=== PATIENT | male | born 1950 | race Caucasian/White ===

== ENCOUNTER 2016-09-09 00:13 | Inpatient (IN) | payer OTHER ==
[2016-09-09] VITALS (10 sets, daily range): BP systolic 129–166; BP diastolic 80–96
[~2016-09-09] VITALS: Ht 180.3 cm; Wt 111.1 kg
--- NOTE | ~2016-09-09 | DS ---
[place], [place] DISCHARGE SUMMARY NAME: ROHAN CHANDRA [facility] #: [id number] UNIT #: [id number] [facility] DOCTOR: JUAN A GREER MD BIRTHDATE: [birth year] DOS: 09/17/2016 ADMISSION DIAGNOSES: 1. Nmirf-yq-jiu rectal adenocarcinoma. No lymph gland involvement. 2. Bowel obstruction. 3. Leakage of the colorectal anastomosis. 4. Atrial fibrillation, treated with heparin and IV Lopressor. 5. Recurrent bowel obstruction and most probably dehiscence of the rectal stump with impending dehiscence of abdominal wall and fascia. PROCEDURE IN HOSPITAL: First operation was low anterior resection with intraoperative colonoscopy followed by second operation on 09/14/2016 with exploration, decompression of the small bowel and disc conduction of the colorectal anastomosis. BRIEF SUMMARY: I did colonoscopy on him and he was found to have upper rectal, cauliflower rectal lesion which turned out to be adenocarcinoma. I had discussed the need for surgical intervention and presented to the low anterior resection with possible postop radiation therapy. He underwent the low anterior resection with EEA and intraoperative colonoscopy and air leak test which was okay. Postop he did develop kidney function problem and maybe from Toradol but I am not sure and Nephrology consult was obtained, that actually was taken care of how he developed abdominal distention and on day of surgery he developed tachycardia and he also developed fever and did a CAT scan which showed possible leak at the colorectal anastomosis and based on the fact that he has looked like bowel obstruction and that leak we went in, we decompressed his bowel and disconnected the colorectal anastomosis. Again, postop he did okay but he developed atrial fibrillation, heparin was started, but now again he is doing the same thing, and the belly is distended. He had lot of oral intake almost 2200 mL. But, the main problem is that since last night he has developed his anal leak. It is a clear bloody fluid and he had done it more than 4-5 times now since last night. The other issue is that he is having lot of serosanguineous drainage from incision and abdominal x-rays again show possible bowel obstruction. So, main problem is that these two recurrent problems and rectal stump dehiscence and I have discussed with the family in my opinion, he should be transferred to a tertiary facility. Patient may need removal of the anal stump, so we would close of the anal area and colostomy will become permanent. He may need exploration again to take the dehiscence and decompression again and whatever is thought better worthy of. He is overall very stable actually and he has no tachycardia, no tachypnea. His heart rate is controlled. His blood pressure is normal. Good oxygenation. His today's lab workup showed WBC count 19.4 and his sodium is 147 and chloride 115 which is better than yesterday and also his BUN and creatinine is coming down almost within normal range. Because of these multiple issues and in my opinion the best thing for him would be to taken care at a tertiary facility, especially by a colorectal surgeon and whatever decision made would be nice. Family understand and they will agree for me to transfer him. [place], [place] DISCHARGE SUMMARY [id number] UNIT #: [id number] [facility]OM: [facility] DOCTOR: JUAN A GREER MD BIRTHDATE: [birth year] Juan A Greer MD CM:NICOLÁS [id number] JUAN A GREER MD 10/24/16 0855 interface
--- NOTE | ~2016-09-09 | PR ---
[place], [place] PROGRESS NOTE NAME: ROHAN CHANDRA [facility] #: [id number] UNIT #: [id number] ROOM: [facility] DOCTOR: JIGNA SCOTT,MO Kenney BIRTHDATE: [birth year] DOS: 09/16/2016 NEPHROLOGY FOLLOWUP NOTE SUBJECTIVE: The patient was seen and examined. He is awake and alert. He looks and feels much better. He does feel very thirsty. Denies any shortness of breath. PHYSICAL EXAMINATION: VITAL SIGNS: Temperature 98.3, pulse 98 , respiratory rate 20, blood pressure 150/82. HEENT: Shows no JVD. Mucous membranes were dry. LUNGS: Diminished breath sounds. No wheeze. HEART: Normal S1, S2. No rub, thrill, or gallop. ABDOMEN: Distended, nontender to mild palpation. EXTREMITIES: Showed trace edema. LABORATORY DATA: Sodium 150, potassium 3.7, BUN 30, creatinine 1.57, glucose 130, calcium 8.2, phosphorus 2.0, magnesium 2.7. IMPRESSION AND PLAN: 1. Acute kidney injury, which appears consistent with a prerenal/acute tubular necrosis-like picture. The patient's baseline creatinine seems to be in the range of 1.2-1.3. Renal function is improving. Electrolytes are acceptable. Replace as needed. 2. Hypernatremia. The patient is on IV fluids. They have been changed to hypotonic solution in view of his hypernatremia. He is now cleared for oral intake. We will increase oral fluids as tolerated. 3. Rectal cancer with anastomotic leak. Continue supportive care. 4. Anemia. Transfuse as needed. 5. Hypertension. Continue meds. Add oral meds when indicated. MO BENITO MD CM:PNTRANS [id number] MO BENITO MD 10/24/16 0857 interface
--- NOTE | ~2016-09-09 | O ---
[place], [place] OPERATIVE NOTE [id number] UN[facility] #: [id number] [facility] DOCTOR: JUAN A GREER MD BIRTHDATE: [birth year] DOS: 09/13/2016 PREOPERATIVE DIAGNOSES: 1. Status post low anterior resection of rectal carcinoma. 2. Possible bowel obstruction. 3. Possible anastomotic leak. POSTOPERATIVE DIAGNOSES: Massive dilatation of the small bowel with ileus, functional obstruction and anastomotic leak on left side of the anastomosis. PROCEDURE: Exploratory laparotomy, decompression of the small bowel, and we got almost 3300 mL of enteric fluid out after enterotomy and closure of enterotomy. Intraoperative colonoscopy and disconnecting the anastomosis using Ethicon contour stapler and a colostomy. SURGEON: Dr. Greer. DESCRIPTION OF PROCEDURE: Under general anesthesia, the patient prepped and draped in normal sterile fashion. The patient had a low anterior resection for perirectal carcinoma. Postop, he developed ileus and had been doing okay, but from last time he developed tachycardia and starting having fever and the abdomen became very, very distended and I thought maybe he has free air, but CT scan did not show that; however, he definitely had a fluid collection around the anastomosis with free air around it. Because of the deterioration in the patient's condition, I discussed with the family and the patient that we would need to go in and decompress the bowel and possible colostomy. With this background, he was brought in. Under general anesthesia, the patient prepped and draped. Previous incision's staple removed and peritoneum entered. Bookwalter retractor applied and the abdominal wall was retracted hyperextending the incision superior toward the epigastrium. When we entered, there was no sign of any enteric fluid coming out; however, small bowel is massively dilated. It was taken out of the abdominal cavity and then enterotomy made in mid ileum and decompression and backward and forward and almost 3300 mL of enteric fluid was obtained with complete decompression. Enterotomy site was closed with TA60 and reinforced with suture. At this time, the patient placed in deep Trendelenburg position. Again, in the pelvic cavity, I do not see any obvious fecal contamination; however, in the presacral space there is a lot of fluid. At this time, I went down and did a gentle colonoscopy and when we injected air, there was some bubbles coming from the abdominal peritoneal cavity. It looks like it is coming in the left side or posterior side of the anastomosis. Because this was a low anastomosis, I tried to suture it, but tissues are filmsy and I was unable, hence I decided to disconnect the anastomosis, which I did with Ethicon contour stapler and the rest of the sigmoid colon was brought up. This is very redundant sigmoid colon, so using the LigaSure, the clamping ligation of the mesosigmoid colon is done and excess colon is resected by a sliding another firing of Ethicon contour cutter. At this time, I pulled the rectus sheath to the midline and made a small incision above the belly button and an opening made and through that end of sigmoid colon is brought up. Thorough irrigation of the pelvic area was done. There is no oozing or bleeding anywhere at this time that I could see. Fascia is closed with 1 PDS continuous [place], [place] OPERATIVE NOTE NAME: ROHAN CHANDRA UNIT #: [id number] ROOM: [facility] DOCTOR: JUAN A GREER MD BIRTHDATE: [birth year] suture, however, we put 2 Interceed underneath. Subcutaneous tissue with 3-0 PDS. Skin is closed with clips. Primary maturation of the colostomy done using 3-0 PDS interrupted sutures. Dressing and colostomy applied. The patient tolerated the procedure well and was sent to room. Family was appraised of all the finding of this. Juan A Greer MD CM:OPRECORD:OPERATIVE NOTE [phone] JUAN A GREER MD 09/13/162140 interface
--- NOTE | ~2016-09-09 | PR ---
[place], [place] PROGRESS NOTE NAME: ROHAN CHANDRA [facility] #: [id number] UNIT #: [id number] ROOM: [facility] DOCTOR: MANDA JACOBSON MD BIRTHDATE: [birth year] DOS: 09/17/2016 CARDIOLOGY PROGRESS NOTE SUBJECTIVE: The patient was seen at his bedside in the intensive care unit today 09/17/2016 for followup of perioperative atrial fibrillation. We had kept him on a heparin infusion since surgery for stroke prophylaxis. Overnight, his abdomen has gotten more swollen and he has had some vaibhav bloody seepage from his wound. He has also had some rectal bleeding. We have therefore stopped his heparin. He tells me that he feels more poorly today. He was only able to drink a half a cup of tea and has not eaten anything else. He still is breathing alright and does not have any chest pain or palpitations. He remains in sinus rhythm, but his abdomen is swollen and tender. PHYSICAL EXAMINATION: VITAL SIGNS: Today, his pulse is 90-100 and regular, blood pressure is 142/87. He is afebrile. Oxygenation is 99% by pulse oximetry. NECK: Supple. He has no jugular distention. Carotids are full and I heard no bruits. He had no neck or supraclavicular masses. LUNGS: Respirations are unlabored. His chest is clear to auscultation and percussion. He has no presacral edema or chest wall tenderness. HEART: Has a regular rhythm with an S4 gallop, but no S3. ABDOMEN: Distended and is very hypoactive. EXTREMITIES: Showed no edema. LABORATORY DATA: Hemoglobin is 9.3, hematocrit 29.1, white count is 19,100. Sodium is 147, potassium 3.6, BUN is 29, creatinine of 1.33. An echocardiogram was done yesterday and showed moderate concentric left ventricular hypertrophy with normal left ventricular systolic function and grade 1 diastolic relaxation abnormality. The left atrium was mildly enlarged, no significant valvular disease was seen. IMPRESSIONS: 1. New-onset atrial fibrillation in the perioperative period. The patient has been in sinus rhythm for the last 2 days. 2. History of hypertension. 3. History of hyperlipidemia. 4. No previous history of heart disease prior to the current events. 5. Status post low anterior resection of a colon cancer with subsequent anastomotic leak requiring creation of an ostomy. His abdomen is now more distended and he is bleeding. PLAN: We will withhold anticoagulants for now. We will continue intravenous metoprolol for rate control and follow him with his other physicians. I thank Dr. Greer and the hospitalist doctors for asking our advice regarding his care. [place], [place] PROGRESS NOTE NAME: ROHAN CHANDRA UNIT #: [id number] ROOM: [facility] DOCTOR: MANDA JACOBSON MD BIRTHDATE: [birth year] MANDA JACOBSON MD CM:PNTRANS [phone] MANDA JACOBSON MD 09/17/161933 interface
--- NOTE | ~2016-09-09 | PR ---
[place], [place] PROGRESS NOTE NAME: ROHAN CHANDRA [facility] #: [id number] UNIT #: [id number] [facility] DOCTOR: ITZ DUEÑAS MD BIRTHDATE: [birth year] DOS: 09/15/2016 This is postop day 2 on the patient who renally had a very low anterior resection for rectal carcinoma. Two days ago, he become tachycardic and had high fever, and we went in. He had almost like bowel obstruction and decompression was done, and also we had to disconnect the low anastomosis because there was leakage on intraoperative colonoscopy. He is doing overall okay, but this morning, he started having what looks like atrial fibrillation and Dr. Castro has seen the patient, and he has been started on Cardizem, and we will get a cardiology consult. Overall, otherwise he is okay. He is very alert, oriented. He says his pain is less. His NG drainage now is not much coming out and his urine is also good output. Clinically, it looks like he may be jaundiced actually. His abdomen is protuberant but before incision looking good. Colostomy has liquid drainage and looks like it may be maroon colored or dark coffee ground. His legs are nontender. There is no positive squeeze test. LABORATORY DATA: His hemoglobin 9 and hematocrit 20.8. The BUN and creatinine are stable in the ratio of almost 20 to 1. There is no bilirubin today, but I think yesterday was 1.7. IMPRESSION: Overall, he is stable. New onset of what looks like atrial fibrillation and it could be because of the fact that although he is getting medication for the NG tube, but maybe not getting reabsorbed and maybe rebound phenomena. However, we will see what Dr. Daley, the combatant diver qualified on-call, say about it. From my stand point, I am going to continue IV fluid and I did add erythromycin IV to maybe stimulate the gut and start moving. We will continue IV antibiotics and I will get a lipase level just to be sure there is no pancreatitis going on. As far as his bilirubin up, it could be post-anesthesia affect in the liver or partly could be abscess as an element of sepsis. We will keep an eye on that, and he may be able to get some ice chips, sips of water or some gum or popsicle if he wants to. Also, we will start clamping and unclamping the NG tube and see if we can take the tube out. Also today, his Phipps catheter will come out. Overall, I think I explained these facts to the patient's family who was sitting in the room. So far, I think he is stable and hopefully his heart rate will come down after they put him on Cardizem drip or whatever has to be done and also it will be okay from my standpoint to start him on heparin drip. [place], [place] PROGRESS NOTE NAME: ROHAN CHANDRA [place] UNIT #: [id number] ROOM: [facility] DOCTOR: ITZ DUEÑAS MD BIRTHDATE: [birth year] Itz Dueñas MD CM:KIZZY [id number] ITZ DUEÑAS MD 09/15/16 2336 interface
--- NOTE | ~2016-09-09 | CON ---
[place], [place] REPORT OF CONSULTATION [id number] UN[facility] #: [id number] ROOM: [facility] DOCTOR: MO BENITO MD BIRTHDATE: [birth year] DOS: 09/14/2016 NEPHROLOGY CONSULTATION REASON FOR CONSULTATION: Acute kidney injury. HISTORY OF PRESENT ILLNESS: The patient is a 66-year-old male with past medical history of hypertension, rectal cancer and osteoarthritis. The patient apparently had a bowel resection surgery and developed anastomotic leak and he went back to surgery for a second-look exploratory laparotomy. I do not know the details. The patient was on the vent and actually when I went to see him, he just was extubated. Apparently during the OR, massive dilation of small bowel with ileus with the function obstruction was noted as well as an anastomotic leak. The patient did have decompression surgery and colostomy. Again, when I seen him, he was awake and his family was at bedside. Following all these events, he developed acute kidney injury. He denied having any chronic kidney disease or any renal issues in the past. Recent CT scan did not reveal any obstructive process. His creatinine from a few days ago was actually higher than where it was now. Today's creatinine was 2.1. His baseline creatinine seems to be in the range of 1.2-1.3 dating back a few years. In fact, he had a creatinine of 1.2 on 08/28/2016. His creatinine was as high as 3.1 few days ago and it did improve to his baseline basically yesterday, but did jump back up today at 2.1. He was not on any at the present time. Again, he was awake and alert. Denies shortness of breath. He has been receiving IV fluids. He also is on antibiotics. HOME MEDICATIONS: Include metoprolol, Protonix, Reglan, subcutaneous heparin, meropenem, fluconazole, Zosyn. ALLERGIES: LISTED CIPRO, LEVOFLOXACIN, MOXIFLOXACIN. PAST MEDICAL HISTORY: 1. Hypertension. 2. Hyperlipidemia. 3. Rectal cancer. 4. Seasonal allergies. 5. Osteoarthritis. 6. Status post bilateral knee replacement. 7. Lower anterior resection of the rectum. 8. Wrist fracture surgery. FAMILY HISTORY: Negative for chronic kidney disease, otherwise, noncontributory. SOCIAL HISTORY: Previous history of tobacco abuse. No history of alcohol. REVIEW OF SYSTEMS: As per HPI, otherwise a 10-point review of systems was reviewed and was negative. PHYSICAL EXAMINATION: [place], [place] REPORT OF CONSULTATION NAME: ROHAN CHANDRA UNIT #: [id number] ROOM: [facility] DOCTOR: MO BENITO MD BIRTHDATE: [birth year] VITAL SIGNS: Temperature 99.7, pulse 109, respiratory rate 17, blood pressure 140/70. GENERAL: He is critically ill, awake, alert, no apparent distress. HEENT: Shows no JVD. Sclerae are anicteric. Mucous membranes appear dry. Pharynx is clear. NECK: Supple. Trachea was midline. There is no neck lymphadenopathy. There is no thyromegaly. LUNGS: Diminished breath sounds. No appreciable wheeze. He is not using accessory muscles of respiration. HEART: Normal S1, S2. No rub, thrill or gallop. ABDOMEN: Soft and nontender. There is no organomegaly or rigidity. There is no rebound or guarding. There is no CVA tenderness. EXTREMITIES: Had trace edema. There is no lower extremity lymphadenopathy. Distal pulses are 2+. SKIN: Showed no rashes, no petechiae or purpura. Skin temperature was warm. NEUROLOGIC: He is awake, alert. He is following commands. His cranial nerves were intact. LABORATORY DATA: Hemoglobin 9.5, white count of 9.2, platelets of 345,000. Sodium 143, potassium 3.9, BUN 39, creatinine 2.1, carbon dioxide 22, albumin of 2.2, calcium 7.3. IMPRESSION: 1. Acute kidney injury with a baseline creatinine seems to be in the range of 1.2-1.3. The etiology seems most consistent with a prerenal/ATN like picture, likely related to transient ischemia. 2. Rectal cancer. 3. Anastomotic leak. 4. Anemia. 5. History of hypertension. 6. Hyperlipidemia. 7. Osteoarthritis. PLAN: 1. Continue ongoing hemodynamic support. 2. IV fluids as tolerated. 3. Dose medications for current creatinine clearance. 4. Replace electrolytes as needed. 5. Follow strict I's and O's. 6. Antibiotics as per the Primary Service. 7. No need for renal replacement therapy. Continue to follow labs daily. Thank you for this consultation. We will follow with you. [place], [place] REPORT OF CONSULTATION NAME: ROHAN CHANDRA UNIT #: [id number] ROOM: [facility] DOCTOR: JIGNA SCOTT,MO Kenney BIRTHDATE: [birth year] MO BENITO MD CM:CONSTR:REPORT OF CONSULTATION 1543 09/15/16 1244 interface
--- NOTE | ~2016-09-09 | PR ---
[place], [place] PROGRESS NOTE [id number] #: [id number] [facility] DOCTOR: JUAN A GREER MD BIRTHDATE: [birth year] DOS: 09/11/2016 This is a followup postop note. The patient had a low anterior resection for rectal carcinoma. Postop, his creatinine went up yesterday and he got changed to normal saline bolus fluid and albumin and Nephrology consult was taken. He had good urine output the whole night and he did have lot of oral intake. He has been complaining about indigestion and he is trying to pass gas but unable to do it. On examination, he had no tachypnea or tachycardia. His lungs were clear. Abdomen was distended, tympanitic. Low bowel sounds. No oozing or bleeding from the rectum. Legs are nontender. Lab workup shows WBC came down to 16,000 and his creatinine is less but BUN is more today. Based on this, I did an abdominal film on him and looks like he has dilated loops of bowel and what looked like to me gastric dilatation on x-rays and not much free air on these films. He got 2 doses of Toradol postop, so I am not sure that triggered it or not, but overall creatinine getting better, but BUN went up. Looks like he has postop ileus. We will continue with management as is at present. NG tube was inserted and lot of fluid came out. He vomited actually and then 125 mL came in the bottle and 250 more. IMPRESSION AND PLAN: Status post resection, most probably ileus and kidney problem, whether due to the hypotension, which I do not know when or Toradol. We will continue as present and keep an eye on this patient for any sign of dehiscence or anything. I had discussed the findings with the patient's and we will see that this NG tube hopefully can take away some of the postop ileus issues. Juan A Greer MD CM:PNTRANS [phone] JUAN A GREER MD 10/24/16 0906 interface
--- NOTE | ~2016-09-09 | PR ---
[place], [place] PROGRESS NOTE [id number] UNIT #: [id number] [facility]: [facility] DOCTOR: JUAN A GREER MD BIRTHDATE: [birth year] DOS: This is a followup note on him. The patient overall I think doing okay. His pulse rate is still in above 100. He has no shortness of breath that I could see. He is coughing up some sputum could be white. His lungs are at least sounds clear, but at bases maybe low sounds. Abdomen is softly distended. Colostomy is working. The incision is doing okay. He is having adequate urine output. LABORATORY DATA: Shows a WBC count to 21,000. His BUN and creatinine actually slowly coming down and his bilirubin 2 today. His lipase was normal. IMPRESSION: Status post ileostomy. His count went up to 21,000 and bilirubin 2, so I have to worry about gallbladder problem and ultrasound was done, it shows sludge, but I am worried that there may be some question of cholecystitis because I do see some sign of a little bit pericholecystic fluid there. His chest x-ray did show some bilateral atelectasis. Also, his sodium is very high 150 and chloride is 117. IMPRESSION: Overall stable. Newly developed atrial fibrillation yesterday, which was controlled with medication. Now hypernatremia, hyperchloremia, most probably from sodium load, increased WBC count. The patient is on IV antibiotics I am going to keep him on there. At this time, I think we will hopefully we can wait about the gallbladder and I hope it will not cause any more trouble. We will give him a clear liquid diet today with restriction on red Jell-O. Also, we may add on bronchodilator we will get his lung clear out. I think we will try to hold this hyperalimentation even today because of severe hypernatremia and hyperchloremia. Juan A Greer MD CM:PNTRANS [phone] JUAN A GREER MD 10/24/16 0911 interface
--- NOTE | ~2016-09-09 | PR ---
[place], [place] PROGRESS NOTE NAME: ROHAN CHANDRA UNIT #: [id number] ROOM: [facility] DOCTOR: JUAN A DUEÑAS MD BIRTHDATE: [birth year] DOS: POSTOP NOTE SUBJECTIVE: He had a low anterior resection for upper to mid rectal cancer. He has postop pain as usual. OBJECTIVE: VITAL SIGNS: Overall are stable. He has no tachypnea. LUNGS: Sounded clear and adequate expansion. HEART: Sound normal sinus. ABDOMEN: Protuberant with incisional pain with dressing on. LEGS: Nontender. LABORATORY WORKUP: Shows leukocytosis, but I think main thing is his creatinine has gone up to 3.06 this morning with normal BUN. Last night, because of his pain not going with Dilaudid, I did put him on Toradol. He got 2 doses last night. This morning, the pharmacist called me, I have stopped Toradol. The other problem was that the nurses took the Phipps out this morning, although they were not supposed to and should have been come out tomorrow but anyway. IMPRESSION: Status-post low anterior resection for rectal carcinoma. Overall, he is stable; however, he has developed kidney function abnormality most probably from Toradol, also postop changes cannot be excluded. He has a very low anastomosis, so one will cannot worry about anything going on the anastomosis, but I doubt it. PLAN: I have changed his IV from half normal to normal saline now. We put the Phipps back in now and he already has more than 20 mL in the bag. His urine does not look any darkish or any concentrated at this time. Plan is to continue with the consult. IV's and normal saline on a half liter clear liquid. I will add on may be Maalox or Mylanta\E\ because he is complaining of heartburns. We will repeat his CBC with diff and CMP or BMP tomorrow morning and go from there. We will see what Dr. Perez, the education courses sales representative says about his issue with the BUN and creatinine and other issues. [place], [place] PROGRESS NOTE NAME: ROHAN CHANDRA UNIT #: [id number] ROOM: [facility] DOCTOR: JUAN A DUEÑAS MD BIRTHDATE: [birth year] Juan A Dueñas MD CM:KIZZY [id number] JUAN A DUEÑAS MD 10/24/16 0916 interface
--- NOTE | ~2016-09-09 | PR ---
[place], [place] PROGRESS NOTE NAME: ROHAN CHANDRA [facility] #: [id number] UNIT #: [id number] [facility] DOCTOR: JUAN A GREER MD BIRTHDATE: [birth year] DOS: SUBJECTIVE: This is postoperative day #4 on the patient who had a very low anterior resection for carcinoma of the rectum. He has an NG tube in and has been draining a lot; however, today when I saw him, he is tachycardic and his abdomen is very, very distended, which was yesterday very soft and not as much distended, he is very, very tympanitic and his x-ray shows question of bowel obstruction. His BUN and creatinine actually much better today, his BUN is down to 36 and creatinine almost like normal now. His glucose is 114, calcium 8.4. ASSESSMENT: Status post low anterior resection, possibility of leak cannot be excluded. PLAN: We will get a stat CT of abdomen and pelvis with oral contrast and NG tube and go from there. I did discuss the possibility of that with the family. If there is a leak, I think he will have to go back in and he probably will end up with a colostomy. Juan A Greer MD CM:KIZZY [id number] JUAN A GREER MD 09/14/167 interface
--- NOTE | ~2016-09-09 | O ---
[place], [place] OPERATIVE NOTE NAME: ROHAN CHANDRA [facility] #: [id number] UNIT #: [id number] ROOM: [facility] DOCTOR: ITZ GREER MD BIRTHDATE: [birth year] DOS: 09/09/2016 PREOPERATIVE DIAGNOSIS: Upper rectal carcinoma. POSTOPERATIVE DIAGNOSIS: Upper rectal carcinoma. PROCEDURES DONE: 1. Exploratory laparotomy and very low anterior resection. 2. Intraoperative colonoscopy with air leak test. SURGEON: Itz Greer MD. BLOOD LOSS: 150 mL. INTRAOPERATIVE COMPLICATIONS: None. DESCRIPTION OF PROCEDURE: Under general anesthesia, the patient was prepped and draped. Suprapubic and periumbilical incision made and taken above the belly button and deepened on the linea alba which was incised in line of incision and peritoneum entered. The Bookwalter retractor is applied to the bedside and then applied to the patient. We used the small blades, this was done in low lithotomy position without any external rotation of the hips. The packs are used to pack up the small bowel toward the upper abdomen after keeping Trendelenburg position. The evaluation reveals the tumor to be very low actually. The left colic gutter and pelvic gutter in the right side are dissected and a presacral space is created and dissection done in the space all the way up to the coccyx and the anus. Lateral dissection done to dissect the lateral ligaments with electrocautery and some clips are used to stop the bleeding. Once this was completed, the colovesical groove is dissected all the way up to the prostate gland. Once this is completely surrounded, this is a transmesorectal dissection. The two firing of Ethicon contour cutter is done and the margin is pretty good actually. Then I dissected the mid sigmoid colon, and after firing a DENIA, the specimen handed over to pathologist and the proximal end of the specimen is marked with a silk suture. The pathologist opened up the specimen. It looks like to me that the margin is 1.5-2 cm below the lower edge of the tumor. Once this was completed, after thorough hemostasis, the proximal end is clamped and transected. An EEA inserted and brought out through the middle of the cut edge. At this time, the construction administrative assistant, Roni inserted the dilator under my direction while me feeling the upper and inside the belly. The 29 EEA inserted very carefully. The knob is brought out and the proximal end attached to it and instrument is closed and fired and removed carefully and the proximal and distal donut looked okay. At this time, a clamp applied to the colon proximal anastomosis and the patient's head is brought up, the anastomosis was sutured, and I went down and did a colonoscopy. The anastomosis looks very good, and after putting a lot of air in it, there are no air leak and no bubble coming out. The air was suctioned out. I changed my gloves and gown and went inside. There was no oozing or bleeding. All the fluid is suctioned out. The Interceed was placed on the fascia which was closed with #1 PDS continuous suture, subcutaneous tissue with 2-0 PDS, skin with clips. Dressing applied. The patient tolerated the procedure well and was sent to the recovery room. [place], [place] OPERATIVE NOTE NAME: ROHAN CHANDRA [place] [facility] [id number] UNIT #: [id number] ROOM: [facility] DOCTOR: ITZ GREER MD BIRTHDATE: [birth year] Itz Greer MD CM:OPRECORD:OPERATIVE NOTE [id number] ITZ GREER MD 10/24/16 0945 interface
--- NOTE | ~2016-09-09 | PR ---
[place], [place] PROGRESS NOTE NAME: ROHAN CHANDRA [facility] #: [id number] UNIT #: [id number] ROOM: [facility] DOCTOR: MANDA JACOBSON MD BIRTHDATE: [birth year] DOS: 09/16/2016 CARDIOLOGY PROGRESS NOTE SUBJECTIVE: The patient was seen at his bedside in the intensive care unit today, 09/16/2016, for followup of perioperative atrial fibrillation. The patient is sitting up at the side of the bed. His NG tube has been removed, and he has begun clear liquids. Currently, complains of being "full." It is not clear that he is absorbing much by mouth yet. PHYSICAL EXAMINATION: VITAL SIGNS: Today, his pulse is 104 and regular, blood pressure is 150/82. He weighs 111.1 kilograms with a body mass index of 34.2. NECK: Supple. He has no jugular distention. Carotids are full. LUNGS: Respirations are unlabored. His chest has decreased breath sounds at the bases. HEART: Has a regular rhythm with an S4 gallop and no S3. ABDOMEN: Distended. He is very hypoactive. EXTREMITIES: Showed no edema. LABORATORY DATA: Hemoglobin is 10.3, white count is elevated at 21,900. Sodium is 150, potassium 3.7, BUN 30, creatinine 1.57. IMPRESSION: 1. New-onset atrial fibrillation in the perioperative period. The patient has been in sinus rhythm since I saw him 24 hours ago. 2. History of hypertension. 3. History of hyperlipidemia. 4. No previous history of heart disease prior to the current events. 5. Status post low anterior resection of colon cancer with subsequent anastomotic leak requiring creation of an ostomy. DISCUSSION: The patient is still not doing very well as best I can see. His abdomen is distended with very hypoactive or absent bowel sounds. His white count is going up, and his electrolytes appear to show signs of dehydration and volume depletion. From a heart standpoint; however, his vital signs are stable and his heart sounds normal. He is remaining in sinus rhythm. We will continue to monitor him clinically. We will continue him on IV metoprolol for the time being until we are sure that he is absorbing his medications with oral therapy. I thank Dr. Greer for asking our advice regarding his management. [place], [place] PROGRESS NOTE NAME: ROHAN CHANDRA UNIT #: [id number] ROOM: [facility] DOCTOR: KAVON SCOTT,MANDA BIRTHDATE: [birth year] MANDA JACOBSON MD CM:PNTRANS [id number] MANDA JACOBSON MD 09/16/162211 interface
--- NOTE | ~2016-09-09 | CON ---
[place], [place] REPORT OF CONSULTATION NAME: ROHAN CHANDRA [facility] #: [id number] UNIT #: [id number] ROOM: [facility] DOCTOR: MANDA JACOBSON MD BIRTHDATE: [birth year] DOS: 09/15/2016 REFERRING PHYSICIAN: Dr. Greer in the hospitalist group. REASON FOR CONSULTATION: New onset atrial fibrillation. HISTORY OF PRESENT ILLNESS: The patient is a 66-year-old man who was initially admitted to the hospital on 09/09/2016 for management of an upper rectal carcinoma. On the day of admission, he did undergo an exploratory lap with a low anterior resection. He initially tolerated the surgery well. However, he did develop an acute renal injury for which Nephrology was consulted. Subsequently, he developed a distended abdomen and an anastomosis leak was suspected. He went back to surgery on 09/13/2016. He was found to have massive dilation of the small bowel with ileus and a functional obstruction. There was also anastomotic leak on the left side of the anastomosis, he did undergo exploratory laparotomy with decompression of the small bowel. A colostomy was created. This morning at about 7 a.m., he went into atrial fibrillation with rapid ventricular response. This was a new rhythm for the patient. He tolerated it well and stated that he could not feel that his heart was racing. He was placed on a diltiazem drip and subsequently converted to sinus rhythm spontaneously. The patient denies any previous history of heart disease. He denies myocardial infarction or stroke. He denies any previous history of valvular disease or arrhythmias. PAST MEDICAL HISTORY: Includes: 1. Hyperlipidemia. 2. Essential hypertension. 3. Rectal cancer. 4. Status post low anterior resection of rectal cancer, 09/09/2016. 5. Return to surgery on 09/13/2016 for anastomotic leak. 6. New onset atrial fibrillation documented on 09/15/2016. 7. History of bilateral knee replacements and repair of wrist fracture. MEDICATIONS: Prior to the current admission included mometasone furoate 50 mcg by spray p.r.n. allergies, amlodipine with benazepril 1 capsule daily, lovastatin 20 mg at bedtime and metoprolol tartrate 50 mg b.i.d. ALLERGIES: The patient listed allergies to CIPROFLOXACIN, LEVOFLOXACIN and MOXIFLOXACIN. REVIEW OF SYSTEMS: The patient denies diplopia or loss of vision. He does have a bit of a sore throat. He denies nausea or vomiting, but he does have an NG tube in place. He does have a lot of mucus production. He denies any current fevers or chills. He denies any recent weight change prior to this hospitalization. He denies any focal weakness. He denies heat or cold intolerance. He denies polydipsia or polyuria. He denies bleeding in his urine. He denies any skin rashes. He denies any peripheral edema. Remainder of the review of systems is negative except as noted above. [place], [place] REPORT OF CONSULTATION NAME: ROHAN CHANDRA UNIT #: [id number] ROOM: [facility] DOCTOR: MANDA JACOBSON MD BIRTHDATE: [birth year] FAMILY HISTORY: The patient's father at age 55 from a myocardial infarction. His mother of complications of Alzheimer disease. SOCIAL HISTORY: The patient is a former smoker and a social drinker. PHYSICAL EXAMINATION: GENERAL: The patient is an elderly white male who is awake, alert and oriented. He looks older than his stated age. VITAL SIGNS: Pulse is 100 and regular, blood pressure is 118/66. He is afebrile. He weighs 111.1 kilograms with a body mass index 34.2. HEENT: Normocephalic, atraumatic. Extraocular muscles are intact. Sclerae are clear. Pupils are equal, round and react to light. The oral mucosa is moist. Tongue is midline. NECK: Supple. He has no jugular distention. Carotids are full and I heard no bruits. He had no neck or supraclavicular masses. LUNGS: Respirations are unlabored. Chest is clear to auscultation and percussion. He has no presacral edema or chest wall tenderness. CARDIOVASCULAR: His heart has an irregular rhythm with an occasional premature beat. He has a fourth heart sound, but no third heart sound or significant murmur. The PMI is not displaced. He has no precordial heave, lift or thrill. ABDOMEN: Distended and quiet. I did not palpate deeply because of his recent surgeries. EXTREMITIES: Showed no edema. Peripheral pulses are surprisingly full in the feet. LABORATORY DATA: I reviewed his electrocardiograms the one from earlier this morning does show atrial fibrillation with a rapid ventricular response and nonspecific ST and T-wave changes. After he converted to sinus rhythm, the tracing showed sinus rhythm with a short NV interval. He does have nonspecific T-wave abnormalities and low voltage in the limb leads. No acute ST or T-wave changes are seen. TSH is normal. Echocardiogram is pending. IMPRESSION: 1. New onset atrial fibrillation in the postoperative period. It is noted that the patient stopped taking metoprolol several days ago because he has been n.p.o. The atrial fibrillation is probably due to a combination of hypertensive heart disease, recent stress of surgery, beta amanda withdrawal, etc. 2. History of hypertension. 3. History of hyperlipidemia. 4. No previous history of heart disease prior to the current events. 5. Status post low anterior resection of colon cancer with subsequent anastomotic leak and creation of an ostomy. PLAN: The patient has been off his metoprolol for several days. We will resume metoprolol intravenously to try to counteract the effects of beta amanda [place], [place] REPORT OF CONSULTATION NAME: ROHAN CHANDRA [place] UNIT #: [id number] ROOM: [facility] DOCTOR: MANDA JACOBSON MD BIRTHDATE: [birth year] withdrawal. For now, I would like to keep him on unfractionated heparin as an infusion for stroke prophylaxis. We probably will want to have him on warfarin or one of the novel oral anticoagulants for at least several months until we are sure that this was simply a postoperative event exacerbated by beta amanda withdrawal and not a primary arrhythmia. I thank Dr. Greer in the hospitalist group for asking our advice regarding his care. MANDA JACOBSON MD CM:CONSTR:REPORT OF CONSULTATION 1449 10/24/16 0919 interface
--- NOTE | ~2016-09-09 | PR ---
[place], [place] PROGRESS NOTE NAME: ROHAN CHANDRA [facility] #: [id number] UNIT #: [id number] [facility] DOCTOR: JUAN A GREER MD BIRTHDATE: [birth year] DOS: 09/14/2016 This is a first postop day note on him. The patient recently came, had studies done on Friday for an upper rectal cancer and had a low anterior resection. Postop, initially did okay but he started having nausea, vomiting, abdominal distention. NG tube was inserted. He did okay for 2 days and then yesterday actually from morning time, he started having tachycardia and his temp went up and his abdomen was very, very distended and the abdominal x-ray picture was more like bowel obstruction than ileus. I did a CAT scan just to be sure there is no leak of the anastomosis. It showed fluid collection in the rectum and possible leak. With the clinical picture and CT scan picture, I discussed with the family and put him back to OR. He looked like he had an almost like bowel obstruction. There was no actually obstructing point, but lot of very distended loops of bowel. He had a decompression of the small bowel after enterotomy which was then closed. In the rectal area, I did an intraoperative colonoscopy and one can see there is a leak bubble coming from the left side at the posterior side of the anastomosis. I tried to locate it with low anastomosis but could not see because of the small pelvis and based on that using an Ethicon Contour Cutter disconnected the anastomosis which was leaking and then he had an end sigmoid colostomy. He had to be kept on vent according to the anesthesiologist seen in intensive care unit. Overall, he is stable. Actually, he has mild tachycardia. He is making a good amount of urine output and he is tolerating the vent pretty good actually. Dr. Mohan is going to come in and hopefully, we can extubate him today and then we will go from there. I did a urine sodium just to be sure whether he needs more fluid or not. He is getting 125 mL of normal saline. He is on Diprivan plus he gets antibiotics. Overall, I think his input is large. His lab workup shows hyperchloremia. His BUN and creatinine are still up. IMPRESSION: Stable postop and we will see if we can extubate him today and then we will go from there. I think he did get a part of the bolus that was ordered. I am just going to wait and see what the urine sodium shows and we will go from there. We will follow with you. [place], [place] PROGRESS NOTE NAME: ROHAN CHANDRA UNIT #: [id number] ROOM: [facility] DOCTOR: JUAN A GREER MD BIRTHDATE: [birth year] Juan A Greer MD CM:PNTRANS [phone] JUAN A GREER MD 10/24/16 0900 interface
[~2016-09-09 00:13] MED LIST: AMLODIPINE BESY1 C11 PO; LOVASTATIN20 MG PO; METOPROLOL TART50 M1 PO; MOMETASONE FURO17 GM NAS
[2016-09-10] VITALS: BP 118/85
[2016-09-10 06:59] LABS: BASO # 0.1 10*3/uL (0.0-0.1); BASO % 0.2 % (0.0-1.0); HEMATOCRIT 39.2 % (42.0-52.0); HEMOGLOBIN 13.2 g/dl (14.0-18.0); IG # 0.1 10*3/uL (0.0-0.1); LYMPH # 3.4 10*3/uL (1.3-4.4); MEAN CELL VOLUME 82.4 fl (80.0-94.0); MEAN CORPUSCULAR HGB 27.7 pg (27.0-31.0); MEAN CORPUSCULAR HGB CONC 33.7 g/dl (33.0-37.0); MEAN PLATELET VOLUME 9.5 fl (9.6-12.3); MONO # 1.2 10*3/uL (0.1-1.0); NEUT # 19.4 10*3/uL (2.3-7.9); NEUT % 80.2 % (47.0-73.0); PLATELET COUNT AUTOMATED 363 10*3/uL (130-400); RED BLOOD COUNT 4.76 10*6/uL (4.50-5.90); RED CELL DISTRI WIDTH 13.6 % (0-14.5); WHITE BLOOD COUNT 24.2 10*3/uL (4.8-10.8)
[2016-09-10 07:28] LABS: POTASSIUM 4.4 mmol/L (3.5-5.1); TOTAL PROTEIN 7.1 gm/dL (6.4-8.2)
[2016-09-10 08:00] VITALS: BP 116/68
[2016-09-10 12:00] VITALS: BP 119/67
[2016-09-10 12:14] LABS: POTASSIUM 4.8 mmol/L (3.5-5.1)
[2016-09-10 16:00] VITALS: BP 106/59
[2016-09-10 20:52] VITALS: BP 110/66
[2016-09-11] VITALS: BP 110/72
[2016-09-11 04:00] VITALS: BP 137/78
[2016-09-11 05:51] LABS: BASO % 0.2 % (0.0-1.0); EOS % 0.1 % (1.0-4.0); IG # 0.2 10*3/uL (0.0-0.1); LYMPH # 1.8 10*3/uL (1.3-4.4); LYMPH % 10.6 % (27.0-41.0); MEAN CELL VOLUME 82.8 fl (80.0-94.0); MEAN CORPUSCULAR HGB 27.8 pg (27.0-31.0); MEAN CORPUSCULAR HGB CONC 33.5 g/dl (33.0-37.0); MEAN PLATELET VOLUME 10.1 fl (9.6-12.3); MONO # 0.9 10*3/uL (0.1-1.0); MONO % 5.6 % (3.0-9.0); NEUT # 13.9 10*3/uL (2.3-7.9); NEUT % 82.5 % (47.0-73.0); PLATELET COUNT AUTOMATED 287 10*3/uL (130-400); RED BLOOD COUNT 3.96 10*6/uL (4.50-5.90); WHITE BLOOD COUNT 16.9 10*3/uL (4.8-10.8)
[2016-09-11 05:52] LABS: HEMATOCRIT 32.8 % (42.0-52.0)
[2016-09-11 06:03] LABS: POTASSIUM 4.4 mmol/L (3.5-5.1)
[2016-09-11 08:00] VITALS: BP 112/70
[2016-09-11 12:00] VITALS: BP 124/74
[2016-09-11 13:50] LABS: BILIRUBIN 1+ (NEGATIVE); BLOOD 3+ (NEGATIVE); CLARITY CLOUDY (CLEAR); COLOR RED (YELLOW); GLUCOSE NEGATIVE (NEGATIVE); KETONE NEGATIVE (NEGATIVE); LEUKO ESTERASE NEGATIVE (NEGATIVE); NITRITE NEGATIVE (NEGATIVE); PROTEIN 2+ (NEGATIVE); SPECIFIC GRAVITY >= 1.030 (1.005-1.030); UROBILINOGEN 0.2 E.U./dl (0.2-1.0)
[2016-09-11 13:53] LABS: URINE OSMOLALITY 533 mOsm/kg (500-850)
[2016-09-11 14:20] LABS: BACTERIA TRACE; RBC TNTC rbc/hpf (0-2); URINE REFLEX COMMENT YES (NO)
[2016-09-11 16:00] VITALS: BP 113/71
[2016-09-11 20:00] VITALS: BP 126/60
[2016-09-12] VITALS: BP 119/70
[2016-09-12 06:45] LABS: HEMATOCRIT 31.4 % (42.0-52.0); HEMOGLOBIN 10.4 g/dl (14.0-18.0); MEAN CELL VOLUME 83.5 fl (80.0-94.0); MEAN CORPUSCULAR HGB 27.7 pg (27.0-31.0); MEAN CORPUSCULAR HGB CONC 33.1 g/dl (33.0-37.0); MEAN PLATELET VOLUME 9.8 fl (9.6-12.3); PLATELET COUNT AUTOMATED 290 10*3/uL (130-400); RED BLOOD COUNT 3.76 10*6/uL (4.50-5.90); RED CELL DISTRI WIDTH 14.1 % (0-14.5); WHITE BLOOD COUNT 6.2 10*3/uL (4.8-10.8)
[2016-09-12 07:05] LABS: BASOPHIL # 0.1 10*3/uL (0-0.1); BASOPHILS 1 % (0-1); EOSINOPHIL # 0.1 10*3/uL (0-0.4); EOSINOPHILS 1 % (1-4); LYMPHOCYTE # 1.2 10*3/uL (1.3-4.4); MONOCYTE # 0.5 10*3/uL (0.1-1.0); NEUTROPHIL # 4.3 10*3/uL (2.3-7.9); NEUTROPHILS 70 % (47-73); TOTAL CELLS COUNTED 100 #CELLS
[2016-09-12 07:06] LABS: PLATELET SUFFICIENCY NORMAL (NORMAL)
[2016-09-12 07:45] LABS: ALBUMIN 2.8 gm/dl (3.1-4.5); BILIRUBIN, TOTAL 0.9 mg/dl (0.2-1.0); POTASSIUM 4.7 mmol/L (3.5-5.1)
[2016-09-12 08:00] VITALS: BP 134/68
[2016-09-12 12:00] VITALS: BP 131/74
[2016-09-12 20:00] VITALS: BP 122/72
[2016-09-13] VITALS (7 sets, daily range): BP systolic 97–141; BP diastolic 64–84
[2016-09-13 07:27] LABS: CARBON DIOXIDE 23 mmol/L (21-32); CHLORIDE 104 mmol/L (98-107); EST GLOM FILT AFRICAN AMERICAN > 60 ml/min; GLUCOSE 114 mg/dL (65-99); SODIUM 141 mmol/L (136-145)
[2016-09-13 07:35] LABS: BUN 36 mg/dl (7-24); POTASSIUM 3.7 mmol/L (3.5-5.1)
[2016-09-13 19:24] LABS: ABG CO2 CONTENT 19.7 mmol/L (23-27); ABG HCO3 18.6 mmol/l (22-26); ABG TEMPERATURE 99.5 F (98.0-99.0); ARTERIAL BLOOD GAS PH 7.332 (7.35-7.45)
[2016-09-13 19:53] LABS: HEMATOCRIT 30.6 % (42.0-52.0); HEMOGLOBIN 9.9 g/dl (14.0-18.0); MEAN CELL VOLUME 85.2 fl (80.0-94.0); MEAN CORPUSCULAR HGB 27.6 pg (27.0-31.0); MEAN CORPUSCULAR HGB CONC 32.4 g/dl (33.0-37.0); MEAN PLATELET VOLUME 9.2 fl (9.6-12.3); PLATELET COUNT AUTOMATED 340 10*3/uL (130-400); RED BLOOD COUNT 3.59 10*6/uL (4.50-5.90); RED CELL DISTRI WIDTH 14.4 % (0-14.5); WHITE BLOOD COUNT 7.3 10*3/uL (4.8-10.8)
[2016-09-13 20:10] LABS: ALBUMIN 2.1 gm/dl (3.1-4.5); BILIRUBIN, TOTAL 1.7 mg/dl (0.2-1.0); POTASSIUM 3.9 mmol/L (3.5-5.1); TOTAL PROTEIN 5.6 gm/dL (6.4-8.2)
[2016-09-13 20:13] LABS: LYMPHOCYTE # 1.3 10*3/uL (1.3-4.4); METAMYELOCYTES 2 % (0-0); MONOCYTE # 0.5 10*3/uL (0.1-1.0); NEUTROPHIL # 5.3 10*3/uL (2.3-7.9); NEUTROPHILS 73 % (47-73); TOTAL CELLS COUNTED 100 #CELLS
[2016-09-13 20:14] LABS: CKMB 0.7 ng/ml (0.5-3.6); MAGNESIUM 2.1 mg/dL (1.5-2.1); PHOSPHOROUS 2.8 mg/dL (2.5-4.9); PLATELET SUFFICIENCY NORMAL (NORMAL); TOXIC GRANULATION SLIGHT
[2016-09-14] VITALS (12 sets, daily range): BP systolic 98–140; BP diastolic 52–76
[2016-09-14 05:38] LABS: ABG BASE EXCESS -4.7 mmol/L (-2.0-2.0); ABG CO2 CONTENT 20.3 mmol/L (23-27); ABG HCO3 19.2 mmol/l (22-26); ABG TEMPERATURE 98.7 F (98.0-99.0); ARTERIAL BLOOD GAS PH 7.382 (7.35-7.45)
[2016-09-14 05:52] LABS: ALBUMIN 2.2 gm/dl (3.1-4.5); BILIRUBIN, TOTAL 1.7 mg/dl (0.2-1.0); POTASSIUM 3.9 mmol/L (3.5-5.1); TOTAL PROTEIN 5.5 gm/dL (6.4-8.2)
[2016-09-14 06:09] LABS: HEMATOCRIT 29.2 % (42.0-52.0); HEMOGLOBIN 9.5 g/dl (14.0-18.0); MEAN CELL VOLUME 85.6 fl (80.0-94.0); MEAN CORPUSCULAR HGB 27.9 pg (27.0-31.0); MEAN CORPUSCULAR HGB CONC 32.5 g/dl (33.0-37.0); MEAN PLATELET VOLUME 9.7 fl (9.6-12.3); NUCLEATED RED BLOOD CELL 0.3 % (0.0-0.0); PLATELET COUNT AUTOMATED 345 10*3/uL (130-400); RED BLOOD COUNT 3.41 10*6/uL (4.50-5.90); RED CELL DISTRI WIDTH 14.6 % (0-14.5); WHITE BLOOD COUNT 9.2 10*3/uL (4.8-10.8)
[2016-09-14 07:28] LABS: LYMPHOCYTE # 1.7 10*3/uL (1.3-4.4); NEUTROPHIL # 6.5 10*3/uL (2.3-7.9); NEUTROPHILS 71 % (47-73); PLATELET SUFFICIENCY NORMAL (NORMAL); TOTAL CELLS COUNTED 100 #CELLS
[2016-09-14 10:34] LABS: BILIRUBIN 1+ (NEGATIVE); BLOOD 2+ (NEGATIVE); CLARITY CLOUDY (CLEAR); COLOR YELLOW (YELLOW); GLUCOSE NEGATIVE (NEGATIVE); KETONE NEGATIVE (NEGATIVE); LEUKO ESTERASE NEGATIVE (NEGATIVE); NITRITE NEGATIVE (NEGATIVE); PH 5.5 (5.0-9.0); PROTEIN 1+ (NEGATIVE); SPECIFIC GRAVITY 1.025 (1.005-1.030); UROBILINOGEN 0.2 E.U./dl (0.2-1.0)
[2016-09-14 11:18] LABS: BACTERIA 3+; COARSE GRANULAR CAST 20-30; EPITHELIAL CELLS 15-20; RBC 21-30 rbc/hpf (0-2)
[2016-09-15] VITALS: BP 116/77
[2016-09-15 04:00] VITALS: BP 119/66
[2016-09-15 06:07] LABS: HEMATOCRIT 28.3 % (42.0-52.0); MEAN CELL VOLUME 86.5 fl (80.0-94.0); MEAN CORPUSCULAR HGB 27.5 pg (27.0-31.0); MEAN CORPUSCULAR HGB CONC 31.8 g/dl (33.0-37.0); MEAN PLATELET VOLUME 9.9 fl (9.6-12.3); PLATELET COUNT AUTOMATED 308 10*3/uL (130-400); RED BLOOD COUNT 3.27 10*6/uL (4.50-5.90); RED CELL DISTRI WIDTH 14.9 % (0-14.5); WHITE BLOOD COUNT 14.6 10*3/uL (4.8-10.8)
[2016-09-15 06:53] LABS: MAGNESIUM 2.6 mg/dL (1.5-2.1); PHOSPHOROUS 2.8 mg/dL (2.5-4.9); POTASSIUM 3.7 mmol/L (3.5-5.1)
[2016-09-15 07:50] LABS: EOSINOPHIL # 0.4 10*3/uL (0-0.4); EOSINOPHILS 3 % (1-4); HYPOCHROMIA MODERATE; LYMPHOCYTE # 1.3 10*3/uL (1.3-4.4); MONOCYTE # 1.3 10*3/uL (0.1-1.0); MYELOCYTES 1 % (0-0); NEUTROPHIL # 11.4 10*3/uL (2.3-7.9); NEUTROPHILS 78 % (47-73); PLATELET SUFFICIENCY NORMAL (NORMAL); SCHISTOCYTES FEW; TEAR DROP CELLS FEW; TOTAL CELLS COUNTED 100 #CELLS; TOXIC GRANULATION MODERATE
[2016-09-15 08:00] VITALS: BP 118/66
[2016-09-15 16:02] VITALS: BP 138/78
[2016-09-15 16:54] LABS: INTERNATIONAL NORM RATIO 1.1 (2.0-3.5)
[2016-09-15 20:00] VITALS: BP 133/71
[2016-09-16] VITALS (7 sets, daily range): BP systolic 138–166; BP diastolic 72–91
[2016-09-16 06:54] LABS: HEMATOCRIT 32.1 % (42.0-52.0); HEMOGLOBIN 10.3 g/dl (14.0-18.0); MEAN CELL VOLUME 85.4 fl (80.0-94.0); MEAN CORPUSCULAR HGB 27.4 pg (27.0-31.0); MEAN CORPUSCULAR HGB CONC 32.1 g/dl (33.0-37.0); MEAN PLATELET VOLUME 9.6 fl (9.6-12.3); RED BLOOD COUNT 3.76 10*6/uL (4.50-5.90); RED CELL DISTRI WIDTH 14.9 % (0-14.5); WHITE BLOOD COUNT 21.9 10*3/uL (4.8-10.8)
[2016-09-16 06:59] LABS: PLATELET COUNT AUTOMATED 412 10*3/uL (130-400)
[2016-09-16 07:22] LABS: MAGNESIUM 2.7 mg/dL (1.5-2.1)
[2016-09-16 07:24] LABS: ALBUMIN 2.5 gm/dl (3.1-4.5); POTASSIUM 3.7 mmol/L (3.5-5.1); TOTAL PROTEIN 6.7 gm/dL (6.4-8.2)
[2016-09-16 07:25] LABS: LYMPHOCYTE # 1.8 10*3/uL (1.3-4.4); MONOCYTE # 0.7 10*3/uL (0.1-1.0); MYELOCYTES 1 % (0-0); NEUTROPHIL # 19.3 10*3/uL (2.3-7.9); NEUTROPHILS 88 % (47-73); PLATELET SUFFICIENCY NORMAL (NORMAL); TOTAL CELLS COUNTED 100 #CELLS
[2016-09-16 16:39] LABS: BUN 29 mg/dl (7-24); CARBON DIOXIDE 22 mmol/L (21-32); CHLORIDE 117 mmol/L (98-107); EST GLOM FILT AFRICAN AMERICAN > 60 ml/min; GLUCOSE 139 mg/dL (65-99); POTASSIUM 3.5 mmol/L (3.5-5.1); SODIUM 148 mmol/L (136-145)
[2016-09-17] VITALS: BP 134/88
[2016-09-17 04:15] VITALS: BP 140/99
[2016-09-17 05:59] LABS: BUN 29 mg/dl (7-24); CARBON DIOXIDE 23 mmol/L (21-32); CHLORIDE 115 mmol/L (98-107); EST GLOM FILT AFRICAN AMERICAN > 60 ml/min; GLUCOSE 140 mg/dL (65-99); POTASSIUM 3.6 mmol/L (3.5-5.1); SODIUM 147 mmol/L (136-145)
[2016-09-17 06:10] LABS: HEMATOCRIT 29.1 % (42.0-52.0); HEMOGLOBIN 9.3 g/dl (14.0-18.0); MEAN CELL VOLUME 86.1 fl (80.0-94.0); MEAN CORPUSCULAR HGB 27.5 pg (27.0-31.0); MEAN PLATELET VOLUME 10.1 fl (9.6-12.3); PLATELET COUNT AUTOMATED 421 10*3/uL (130-400); RED BLOOD COUNT 3.38 10*6/uL (4.50-5.90); RED CELL DISTRI WIDTH 15.1 % (0-14.5); WHITE BLOOD COUNT 19.1 10*3/uL (4.8-10.8)
[2016-09-17 07:29] LABS: EOSINOPHIL # 0.2 10*3/uL (0-0.4); EOSINOPHILS 1 % (1-4); LYMPHOCYTE # 0.4 10*3/uL (1.3-4.4); MONOCYTE # 1.1 10*3/uL (0.1-1.0); NEUTROPHIL # 17.4 10*3/uL (2.3-7.9); NEUTROPHILS 91 % (47-73); TOTAL CELLS COUNTED 100 #CELLS; TOXIC GRANULATION MODERATE
[2016-09-17 07:30] LABS: PLATELET SUFFICIENCY HIGH (NORMAL)
[2016-09-17 07:52] VITALS: BP 142/87
[2016-09-17 12:00] VITALS: BP 145/90
[2016-09-17 15:55] VITALS: BP 144/60
== END 2016-09-17 16:50 | disposition short-term general hospital (02) | DRG 329 ==
LOC: SDC 00:13 → 4E 10:40 → SDC 11:00 → 5E 09-10 20:33 → ICCU 09-13 16:27
PROVIDERS: Internal Medicine; Internal Medicine Cardiovascular Disease; Internal Medicine Nephrology; Surgery
PROC: 0DBN0ZZ Excision of Sigmoid Colon, Open Approach (ICD-10-PCS; principal; 2016-09-13)
PROC: 0D7N8ZZ Dilation of Sigmoid Colon, Via Natural or Artificial Opening Endoscopic (ICD-10-PCS; principal; 2016-09-13)
DX: C20 Malignant neoplasm of rectum (principal); N17.0 Acute kidney failure with tubular necrosis; E43 Unspecified severe protein-calorie malnutrition; E87.0 Hyperosmolality and hypernatremia; K56.60 Unspecified intestinal obstruction; R65.10 Systemic inflammatory response syndrome (SIRS) of non-infectious origin without acute organ dysfunction; D68.59 Other primary thrombophilia; T82.338A Leakage of other vascular grafts, initial encounter; K91.89 Other postprocedural complications and disorders of digestive system; E87.8 Other disorders of electrolyte and fluid balance, not elsewhere classified; I48.91 Unspecified atrial fibrillation; I10 Essential (primary) hypertension; E78.5 Hyperlipidemia, unspecified; D64.9 Anemia, unspecified; M19.90 Unspecified osteoarthritis, unspecified site; I49.5 Sick sinus syndrome; Z96.653 Presence of artificial knee joint, bilateral; Z82.49 Family history of ischemic heart disease and other diseases of the circulatory system; Z82.0 Family history of epilepsy and other diseases of the nervous system; Z88.1 Allergy status to other antibiotic agents; Z79.899 Other long term (current) drug therapy; Z93.2 Ileostomy status; Z79.01 Long term (current) use of anticoagulants; Z87.891 Personal history of nicotine dependence; Z68.34 Body mass index [BMI] 34.0-34.9, adult

== ENCOUNTER → 2017-04-23 | Outpatient (CLI) | payer OTHER | END | disposition home or self-care (01) | LOC: US 15:25 | DX: N50.89 Other specified disorders of the male genital organs (principal) ==